=== PATIENT | male | born 1975 | race Caucasian/White ===

== ENCOUNTER → 2016-08-22 | Day surgery (SDC) | payer OTHER ==
[~2016-08-22] MED LIST: ACETAMINOPHEN 1000 MG/100 ML VIAL IV ONE; ACETAMINOPHEN/HYDROcodone 325 MG/5 MG TAB ONE; BUPIVACAINE/EPINEPHRINE 0.25% PF 10 ML VIAL ONE; KETOROLAC TROMETHAMINE 30 MG/ML (IVP) VIAL IV PUSH ONE; LACTATED RINGER'S 1000 ML INJ 1,000 ML ONE; MIDAZOLAM HCL 2 MG/2 ML VIAL ONE; ONDANSETRON HCL 4 MG/2 ML VIAL IV PUSH ONE; PROPOFOL 200 MG/20 ML AMP IV ONE; ceFAZolin INJ 1,000 MG VIAL ONE
--- NOTE | 2016-08-22 16:40 | TN ---
cc: GENA NELSON M.D. DATE OF SURGERY: 08/22/2016 PREOPERATIVE DIAGNOSES 1. Ventral hernia. 2. Left inguinal hernia direct type. POSTOPERATIVE DIAGNOSES 1. Ventral hernia. 2. Left inguinal hernia direct type. PROCEDURE 1. Repair of ventral hernia primary closure. 2. Repair of left inguinal hernia with UltraPro mesh. ANESTHESIA General. SURGEON Dr. Nelson. BIRD CAGE ASSEMBLER Ms. Rajni Leach, Advanced Registered Nurse Practitioner The CORPORATE LEGAL MANAGER was present from beginning to the end of the case assisting in all portions of the procedure. It was necessary to have this individual in the room to assist in the above surgical procedure. The surgical procedure was assisted by the CORPORATE LEGAL MANAGER. The CORPORATE LEGAL MANAGER presence was necessary throughout the case for appropriate retraction, dissection, visualization, and resection of the important anatomical structures during the surgical procedure. The CORPORATE LEGAL MANAGER was assisting throughout the entirety of the operation. The skill set of the CORPORATE LEGAL MANAGER is medically and surgically necessary to safely complete the surgical procedure. During the surgical case the operating room surgical rn was working instrument table and passing instruments to the attending surgeon and CORPORATE LEGAL MANAGER The CORPORATE LEGAL MANAGER was directly assisting the operating surgeon and involved in the technical aspects of the surgical case. INDICATION This is a pleasant 40-year-old gentleman who had a symptomatic ventral hernia about 2 cm above his umbilicus and a left inguinal hernia, plans were made for above. PROCEDURE The patient was taken to the operating room and placed in supine position. After anesthesia and after prepping and draping and a timeout was done, he was given preoperative antibiotics. We make a vertical incision 1.5 cm above the umbilicus, dissect down to the subcutaneous tissue identifying a 3 mm ventral hernia that has some incarcerated fatty tissue and which is removed. We then place two Ethibond sutures to reapproximate this fascial defect in a vertical fashion burying the knots because the patient is quite thin. We then reapproximate the deep layers with 3-0 Vicryl and the skin with 4-0 Vicryl. We then direct our attention to the left side. Oblique incision was made overlying the internal and external ring. Ricardo's fascia is incised, external oblique aponeurosis incised, the cord structures surrounded with a Tapan drain. A direct defect can be palpated, it is away from the cord structures. Again, he is quite thin, we use UltraPro mesh securing it to the pubic tubercle, Cortes's ligament and the iliopubic tract out laterally and the conjoined tendon medial. Tails were fashioned and secured to themselves so they lay flat along the internal oblique aponeurosis which we secure the mesh to with the Ethibond suture. After this is done, we then close the external oblique aponeurosis and it is noted that we sacrificed the ilioinguinal nerve because the patient is quite thin and it was rubbing up against the mesh. This is dissected all the way up to the internal oblique aponeurosis and muscle and amputated. After closing the external oblique aponeurosis with a 2-0 Vicryl, we close Ricardo's with a 2-0 Vicryl and the skin 4-0 Vicryl. Steri-Strips applied. Sterile bandage applied. The patient tolerated the procedure well and had no immediate postop complications. MD ESTELA Chirinos/GONZALES /3:32 PM /4:07 PM MARJ
== END | disposition home or self-care (01) ==
LOC: ESDC 10:46
PROVIDERS: ATTEND Surgery
DX: K40.90 Unilateral inguinal hernia, without obstruction or gangrene, not specified as recurrent (principal); K43.9 Ventral hernia without obstruction or gangrene
CPT/HCPCS: 00752; 00830; 49505; 49560; C1781; J0131; J0690; J1885; J2250; J2405; J3010; J7120